=== PATIENT | female | born 1940 | race Caucasian/White ===

== ENCOUNTER 2018-01-30 15:13 | Inpatient (IN) | END 2018-02-12 13:54 | DRG 480 ==

== ENCOUNTER 2018-05-05 09:18 | Emergency (ER) | END 2018-05-05 18:48 | disposition home or self-care (01) ==

== ENCOUNTER 2018-09-28 14:34 | Emergency (ER) | END 2018-09-28 18:35 | disposition home or self-care (01) ==

== ENCOUNTER 2019-02-12 07:52 | Day surgery (SDC) | payer OTHER ==
[2019-02-12] VITALS (14 sets, daily range): BP systolic 128–151; BP diastolic 50–92; PULSE 64–95; RESP 16–22; Ht 157.5 cm; Wt 71.5 kg
[~2019-02-12] VITALS: Ht 157.5 cm; Wt 71.5 kg
[~2019-02-12 07:52] MED LIST: ASPI325T32 PO; ATOR10TA65 PO; BROMFENAC SODIUM 1.7 ML OPH DROP OPER SCH; CYCLOPENTOLATE 2% 2 ML OPH OPER SCH; FER325 PO; LACTATED RINGER'S 1,000 ML IV SCH; LANT3I SC; LIDOCAINE 3.5% GEL TUBE OPER ONE; LOSA25TA2 PO; MOXIFLOXACIN 0.5% 3 ML OPH OPER SCH; NOVO3I SC; PHENYLephrine 10% 5 ML OPH OPER SCH; SERT50TA6 PO; TROPICAMIDE 1% 15 ML OPH OPER SCH
[2019-02-12] MEDS ORDERED: LOSA100T15 PO (08:41)
[2019-02-12] MEDS ORDERED: SERT50TA6 PO (08:42)
[2019-02-12] MEDS ORDERED: ASPI81TA52 PO (08:42)
--- NOTE | 2019-02-12 08:42 | HPN ---
Date/Time of Note Date/Time of Note DATE: 02/12/19 TIME: 08:41 Interval H&P Admission Note Pt. seen H&P reviewed: No system changes JANNA VARELA D.O. Feb 12, 2019 08:42
[2019-02-12] MEDS ORDERED: TOLT2TAB5 PO (08:43)
[2019-02-12] MEDS ORDERED: AMLO-147 PO (08:43)
[2019-02-12] MEDS ORDERED: DONE10TA7 PO (08:44)
[2019-02-12] MEDS ORDERED: ATOR20TA38 PO (08:44)
[2019-02-12] MEDS ORDERED: PENT400T9 PO (08:44)
[2019-02-12] MEDS ORDERED: INSU100I7 SQ ×2 (08:45→08:46)
[2019-02-12] MEDS ORDERED: ASCO500C7 PO (08:46)
[2019-02-12] MEDS ORDERED: OMEG-158 PO (08:47)
[2019-02-12] MEDS ORDERED: CALC1TAB79 PO (08:47)
[2019-02-12] MEDS ORDERED: LIDOCAINE 3.5% GEL TUBE ONE (08:58)
[2019-02-12] MEDS: TETRACAINE 0.5% 4 ML OPH OPER SCH ×2 (09:25→12:31)
--- NOTE | 2019-02-12 09:48 | PREAC ---
Date/Time of Note Date/Time of Note DATE: 02/12/19 TIME: 09:44 Anesthesia Eval and Record Evaluation Time Pre-Procedure Interview DATE: 02/12/19 TIME: 09:44 Age 79 Sex female NPO: 8 hrs Preoperative diagnosis left eye cataract Planned procedure lef eye CEIOL implant, anterior vitrectomy Past Medical History Past Medical History: Includes Cardio: HTN, Dyslipidemia Endo: Diabetes Neuro: Other (dementia, short term memory loss) Musculoskeletal: Osteoarthritis (s/p right NEIL) Renal: CKD Surgery & Anesthesia Issues No known issue Meds Anticoagulation: Yes (last dose asa 02/06/19) Beta Lowell within 24 hr: No Reason Beta Lowell not given: Pt. not on B-Lowell Reported Medications [place]-3/Dha/Epa/Fish Oil (FISH OIL 1,000 MG SOFTGEL) 1 Each Capsule, 1 EACH PO DAILY, CAP 02/12/19 Calcium Carbonate/Vitamin D3 (Oysco 500+D Tablet) 1 Each Tablet, 1 EACH PO DAILY, TAB 02/12/19 Ascorbic Acid* (Vitamin C*) 500 Mg Capsule.sa, 500 MG PO DAILY, CAP 02/12/19 Insulin Lispro Protamin/Lispro (Humalog Mix 75-25 Kwikpen) 100 Unit/1 Ml Insuln.pen, 20 UNIT SQ QPM 02/12/19 Insulin Lispro Protamin/Lispro (Humalog Mix 75-25 Kwikpen) 100 Unit/1 Ml Insuln.pen, 30 UNIT SQ QAM 02/12/19 Donepezil* (Donepezil*) 10 Mg Tablet, 10 MG PO DAILY, #30 TAB 02/12/19 Pentoxifylline* (Pentoxifylline*) 400 Mg Tablet.sa, 400 MG PO DAILY, TAB 02/12/19 Atorvastatin Calcium* (Atorvastatin Calcium*) 20 Mg Tablet, 20 MG PO QHS, #30 TAB 02/12/19 Amlodipine Besylate* (Amlodipine Besylate*) 10 Mg Tablet, 10 MG PO DAILY, #30 TAB 02/12/19 Tolterodine Tartrate* (Tolterodine Tartrate*) 2 Mg Tablet, 2 MG PO BID, #60 TAB 02/12/19 Aspirin (Low Dose Aspirin) 81 Mg Tablet.dr, 81 MG PO DAILY, #30 TAB 02/12/19 Sertraline Hcl* (Sertraline Hcl*) 50 Mg Tablet, 50 MG PO DAILY, #30 TAB 02/12/19 Losartan Potassium* (Losartan Potassium*) 100 Mg Tablet, 100 MG PO DAILY, TAB 02/12/19 Discontinued Reported Medications Atorvastatin (Atorvastatin) 10 Mg Tablet, 20 MG PO QHS, #30 TAB 01/31/18 Sertraline Hcl* (Sertraline Hcl*) 50 Mg Tablet, 50 MG PO DAILY, #30 TAB 01/31/18 Discontinued Scripts Insulin Glargine* (Lantus*) 100 Unit/Ml Soln, 20 UNIT SC DAILY@20 for 30 Days Prov:RUI ROJAS 02/11/18 Insulin Aspart* (Novolog Insulin Pen*) 100 Unit/Ml Soln, 10 UNIT SC WITH MEALS for 30 Days Prov:RUI ROJAS 02/11/18 Aspirin (Aspir-Anna) 325 Mg Tablet.dr, 325 MG PO BID for 30 Days Prov:RUI ROJAS 02/11/18 Losartan Potassium* (Cozaar*) 25 Mg Tablet, 100 MG PO DAILY for 30 Days, TAB Prov:RUI ROJAS 02/11/18 Ferrous Sulfate* (Ferrous Sulfate*) 325 Mg Tabec, 325 MG PO BID for 30 Days, TAB Prov:RUI ROJAS 02/11/18 Current Medications Lactated Ringer's 1,000 ml @ 25 mls/hr Q24H IV ; Start 02/11/19 at 16:32 Cyclopentolate HCl (Cyclogyl 2% Oph) 1 drop Q5MIN X 3 OPER Last administered on 02/12/19at 09:25; Admin Dose 1 DROP; Start 02/11/19 at 17:00 Bromfenac Sodium (Bromday) 1 drop Q5 MIN X3 OPER Last administered on 02/12/19at 09:25; Admin Dose 1 DROP; Start 02/11/19 at 17:00 Phenylephrine HCl (Ak-Dilate 10%) 1 drop Q5MIN X 3 OPER Last administered on 02/12/19 09:26; Admin Dose 1 DROP; Start 02/11/19 at 17:00 Tropicamide (Mydriacyl 1%) 1 drop Q5MIN X 3 OPER Last administered on 02/12/19at 09:26; Admin Dose 1 DROP; Start 02/11/19 at 17:00 Moxifloxacin HCl (Vigamox) 1 drop Q5MIN X 3 OPER Last administered on 02/12/19at 09:26; Admin Dose 1 DROP; Start 02/11/19 at 17:00 Tetracaine HCl (Tetracaine 0.5% Steri-Unit Jaquelin) 1 drop Q5 MIN X3 OPER Last administered on 02/12/19at 09:25; Admin Dose 1 DROP; Start 02/11/19 at 17:00 Meds reviewed: Yes Allergies Coded Allergies: Penicillins (Verified Allergy, Intermediate, 02/12/19) Sulfa (Sulfonamide Antibiotics) (Verified Allergy, Intermediate, 02/12/19) Allergies Reviewed: Yes Labs/Studies Labs Reviewed: Reviewed by anesthesiologist test: N/A Studies: ECG, CXR Pre-procedure Exam Airway: Adequate mouth opening, Adequate thyromental dist Mallampati: Mallampati II Teeth: Normal (several missing teeth) Lung: Normal Heart: Normal ASA Physical Status ASA physical status: 3 Emergency: None Planned Anesthetic General/MAC: LMA (pt has dementia and anxiety, pt and family concerned that sudden movements due to disorientation will happen intraop so prefers to get GA) Planned Pain Management Parenteral pain med, Local by surgeon Pre-operative Attestations Prior to commencing anesthesia and surgery, the patient was re-evaluated, there was verification of: *The patient's identity *The results of appropriate recent lab work and preoperative vital signs *The above evaluation not changing prior to induction *Anesthetic plan, risk benefits, alternative and complications discussed with patient/family; questions answered; patient/family understands, accepts and wishes to proceed. NII BARBOSA Feb 12, 2019 09:48
[2019-02-12] MEDS ORDERED: hydrALAzine 20 MG INJ IV PRN (10:00)
[2019-02-12] MEDS ORDERED: OXYCODONE/ACETAMINOPHEN (5/325) TAB PO PRN ×2 (10:00)
[2019-02-12] MEDS ORDERED: FENTAnyl 50 MCG/ML VIAL IV PRN ×3 (10:00)
[2019-02-12] MEDS ORDERED: LABETALOL HCL 20MG INJ IV PRN (10:00)
[2019-02-12] MEDS ORDERED: ONDANSETRON 4 MG INJ IV PRN (10:00)
[2019-02-12] MEDS ORDERED: PROPOFOL 40 ML ONE (10:26)
[2019-02-12] MEDS ORDERED: FENTAnyl 50 MCG/ML VIAL ONE (10:26)
[2019-02-12] MEDS ORDERED: LIDOCAINE 2% (SDV) 5 ML INJ ONE (10:26)
[2019-02-12] MEDS ORDERED: MOXIFLOXACIN 0.5% 3 ML OPH ONE (10:30)
[2019-02-12] MEDS ORDERED: TETRACAINE 0.5% 4 ML OPH ONE (10:30)
[2019-02-12] MEDS ORDERED: LIDOCAINE 1%/EPI (1:100,000) (MDV) 20 ML ONE (10:30)
[2019-02-12] MEDS ORDERED: TRYPAN BLUE 0.5 ML SYG IO ONE (10:35)
[2019-02-12] MEDS ORDERED: CLINDAMYCIN 600 MG/D5W (PMX) 50 ML IVPB ONE (11:29)
[2019-02-12] MEDS ORDERED: ONDANSETRON 4 MG INJ ONE (11:33)
--- NOTE | 2019-02-12 12:30 | SIPON ---
Date/Time of Note Date/Time of Note DATE: 02/12/19 TIME: 12:24 Operative Report Preoperative Diagnosis Hypermature senile cataract, Lt eye, Narrow angle glaucoma, Lt eye, Vitreous degeneration , Lt.eye. Postoperative Diagnosis Hypermature senile cataract, LT EYE, Vitreous degeneration, Lt eye, Narrow angle glaucoma, lt.eye, Floppy iris syndrome, Lt eye. Operation/Procedure Performed Extracapsular cataract ectraction, pars plana vitrectomy and IOL implantation, Lt. eye. Surgeon see signature line video library assistant none Anesthesia: general Estimated blood loss: minimal Transfusion Required none Specimen none Grafts/Implants none Complications none JANNA VARELA D.O. Feb 12, 2019 12:30
--- NOTE | 2019-02-12 13:26 | PAC ---
Date/Time of Note Date/Time of Note DATE: 02/12/19 TIME: 13:26 Post-Anesthesia Notes Post-Anesthesia Note Last documented vital signs Vital Signs Date Temp Pulse Resp B/P (MAP) Pulse Ox O2 O2 Flow FiO2 Time Delivery Rate 02/12/19 88 19 137/59 95 Room Air 12:58 (85) 02/12/19 98.2 12:27 Activity: WNL Respiratory function: WNL Cardiovascular function: WNL Mental status: Baseline Pain reasonably controlled: Yes Hydration appropriate: Yes Nausea/Vomiting absent: Yes NII BARBOSA Feb 12, 2019 13:26
--- NOTE | 2019-02-13 21:40 | OPR ---
DATE OF OPERATION: SURGEON: Janna Uribe DO ANESTHESIOLOGIST: Roger Perez CRNA PREOPERATIVE DIAGNOSES: 1. Hypermature senile cataract, left eye. 2. Vitreous degeneration, left eye. 3. Anatomically narrow-angle glaucoma, left eye. POSTOPERATIVE DIAGNOSES: 1. Hypermature senile cataract, left eye. 2. Vitreous degeneration, left eye. 3. Anatomically narrow-angle glaucoma, left eye. 4. Floppy iris syndrome, left eye. PROCEDURE PLANNED: Extracapsular cataract extraction with intraocular lens implantation and pars bennett na vitrectomy, left eye. PROCEDURE PERFORMED: Extracapsular cataract extraction with intraocular lens implantation and pars p klarissa vitrectomy, left eye. ANESTHESIA: General. INFORMED CONSENT: The procedure, risks, benefits, alternatives and complications including bleeding, infection, loss of vision, loss of the eye, loss of nucleus and retinal detachment, damage of the ir is and possible secondary surgery to take care of complication have been discussed with the patient a nd her son, Ramy. It was discussed in [place]. The patient and her son, Ramy, understood and co nsented to the above-mentioned procedure. Even they are both aware of a high risk of complication du e to very advanced immature cataracts and very poor vision, only light perception. No guarantee of i mprovement of vision was given and high risk of possibility of complication and secondary surgery. T he patient signed the consent form and it is available in the medical chart. The patient was taken t o the operating room in stable condition and the full face was prepped and draped in a sterile fashio n for the cataract surgery. DESCRIPTION OF PROCEDURE: The patient was placed on the operating room table in supine position. Th en, Alcaine drop was instilled in the conjunctival sac. It was followed by injection of lidocaine 2% with epinephrine subconjunctivally in anterior chamber as well. Then, air bubble was injected in th e anterior chamber. It was followed by injection of Trypan blue which was removed with irrigation as piration with balanced salt solution. In the temporal area about 3 mm below of a limbal incision, co njunctival incision was done and it was cauterized with Bovie cautery. Then, ____ shape incision 7.5 mm was done with the Edgar #15 blade and then very large capsulorrhexis was done and hydrodissectio n as well. The nucleus was rotated out of the posterior bag into anterior. Then, [place] knife was u sed to enter the anterior chamber. The loop and some pressured with muscle hook from opposite side w as used to extract the nucleus from the anterior chamber. It was followed by irrigation aspiration. Additional Viscoat agent was injected and a posterior capsular lens [id number], 20.0 diopters, was inser zac into the posterior bag. Then, the patient was suddenly started moving and additional high pressu re was noticed in the eye and the iris was prolapsed and it was very floppy even with our attempt to insert it back into the anterior chamber with Viscoat agent and a spatula was not successful. Part o f the iris was removed and pars plana vitrectomy was done. The wound was, prior to it, closed with 8 -0 Vicryl suture. Viscoat was removed via irrigation aspiration with balanced salt solution. The co njunctiva was closed with 8-0 Vicryl. TobraDex ointment was instilled in the conjunctival sac. The patient was transferred to recovery room in stable condition. Dictated By: JANNA ALTMAN/SAVANA Conf#: [id number] DID#: [id number]
== END 2019-02-12 14:55 | disposition home or self-care (01) ==
LOC: SDS 07:52
PROVIDERS: ATTEND Ophthalmology
DX: H25.22 Age-related cataract, morgagnian type, left eye (principal); H40.20X0 Unspecified primary angle-closure glaucoma, stage unspecified; E11.9 Type 2 diabetes mellitus without complications; I10 Essential (primary) hypertension; E78.5 Hyperlipidemia, unspecified
CPT/HCPCS: 66984; 82962; J2405; J3010; V2632; Z7512; Z7610

== ENCOUNTER 2019-04-14 14:44 | Emergency (ER) | payer OTHER ==
[~2019-04-14] VITALS: Wt 70.0 kg
[~2019-04-14 14:44] MED LIST changes: +AMLO-147 PO; +ASCO500C7 PO; -ASPI325T32 PO; +ASPI81TA52 PO; -ATOR10TA65 PO; +ATOR20TA38 PO; -BROMFENAC SODIUM 1.7 ML OPH DROP OPER SCH; +CALC1TAB79 PO; -CYCLOPENTOLATE 2% 2 ML OPH OPER SCH; +DONE10TA7 PO; -FER325 PO; +INSU100I7 SQ; -LACTATED RINGER'S 1,000 ML IV SCH; -LANT3I SC; -LIDOCAINE 3.5% GEL TUBE OPER ONE; +LOSA100T15 PO; -LOSA25TA2 PO; -MOXIFLOXACIN 0.5% 3 ML OPH OPER SCH; -NOVO3I SC; +OMEG-158 PO; +PENT400T9 PO; -PHENYLephrine 10% 5 ML OPH OPER SCH; +TOLT2TAB5 PO; -TROPICAMIDE 1% 15 ML OPH OPER SCH
--- NOTE | 2019-04-14 15:49 | ERD ---
ER Documentation Chief Complaint Chief Complaint MD ref: 'EKG shows infarct'. L sided CP intermittent 0/10. hx dementia HPI 79-year-old female comes to the emergency department with her son for evaluation of an abnormal EKG. Patient was in her normal state of health which is a say that she was going for a preop appointment to her doctor for preop clearance for retinal surgery. She was asymptomatic with no chest pain or shortness of breath. Her doctor did a EKG which showed a left bundle branch block and referred the patient to the emergency department. Upon arrival, patient continues to have no complaints including no chest pain, shortness of breath. ROS All systems reviewed and are negative except as per history of present illness. Medications Home Meds Reported Medications [place]-3/Dha/Epa/Fish Oil (FISH OIL 1,000 MG SOFTGEL) 1 Each Capsule, 1 EACH PO DAILY, CAP 02/12/19 Calcium Carbonate/Vitamin D3 (Oysco 500+D Tablet) 1 Each Tablet, 1 EACH PO DAILY, TAB 02/12/19 Ascorbic Acid* (Vitamin C*) 500 Mg Capsule.sa, 500 MG PO DAILY, CAP 02/12/19 Insulin Lispro Protamin/Lispro (Humalog Mix 75-25 Kwikpen) 100 Unit/1 Ml Insuln.pen, 20 UNIT SQ QPM 02/12/19 Insulin Lispro Protamin/Lispro (Humalog Mix 75-25 Kwikpen) 100 Unit/1 Ml Insuln.pen, 30 UNIT SQ QAM 02/12/19 Donepezil* (Donepezil*) 10 Mg Tablet, 10 MG PO DAILY, #30 TAB 02/12/19 Pentoxifylline* (Pentoxifylline*) 400 Mg Tablet.sa, 400 MG PO DAILY, TAB 02/12/19 Atorvastatin Calcium* (Atorvastatin Calcium*) 20 Mg Tablet, 20 MG PO QHS, #30 TAB 02/12/19 Amlodipine Besylate* (Amlodipine Besylate*) 10 Mg Tablet, 10 MG PO DAILY, #30 TAB 02/12/19 Tolterodine Tartrate* (Tolterodine Tartrate*) 2 Mg Tablet, 2 MG PO BID, #60 TAB 02/12/19 Aspirin (Low Dose Aspirin) 81 Mg Tablet.dr, 81 MG PO DAILY, #30 TAB 02/12/19 Sertraline Hcl* (Sertraline Hcl*) 50 Mg Tablet, 50 MG PO DAILY, #30 TAB 02/12/19 Losartan Potassium* (Losartan Potassium*) 100 Mg Tablet, 100 MG PO DAILY, TAB 02/12/19 Allergies Allergies: Coded Allergies: Penicillins (Verified Allergy, Intermediate, 02/12/19) Sulfa (Sulfonamide Antibiotics) (Verified Allergy, Intermediate, 02/12/19) PMhx/Soc History of Surgery: Yes (R HIP SURGERY) Anesthesia Reaction: No Hx Neurological Disorder: No Hx Respiratory Disorders: No Hx Cardiac Disorders: Yes (HTN) Hx Psychiatric Problems: Yes (DEPRESSION, DEMENTIA) Hx Miscellaneous Medical Probl: No Hx Alcohol Use: No Hx Substance Use: No Hx Tobacco Use: No Physical Exam Vitals Vital Signs Date Temp Pulse Resp B/P (MAP) Pulse Ox O2 O2 Flow FiO2 Time Delivery Rate 04/14/19 97.9 68 20 162/72 96 14:50 (102) Physical Exam GENERAL: The patient is well developed and appropriate for usual state of health in no apparent distress HEENT: Pupils equal, round, and reactive to light. EOMI. There is no scleral icterus. NECK: C-spine is soft and supple, there is no meningismus. There is no cervical lymphadenopathy. LUNGS: Clear to auscultation bilaterally. There are no rales, wheezes or rhonchi. HEART: Regular rate and rhythm. There is a 2-3+ systolic ejection murmur at the left upper sternal border. ABDOMEN: Soft, non-tender, non-distended. There are bowel sounds in all four quadrants. No rebound or guarding. EXTREMITIES: There is no peripheral cyanosis or edema. No focal swelling or erythema. NEURO: The patient moves all four extremities with 5/5 strength. Cranial nerves II - XII are intact. Normal gait. Alert and oriented SKIN: There is no apparent rash or petechiae. HEME/LYMPHATIC: There is no evidence of excessive bruising or lymphedema. PSYCHIATRIC: The patient does not appear anxious or depressed. Procedures/MDM Patient was taken to a room, seen and examined Twelve-lead EKG interpreted by myself both from the patient's doctor's office as well as here in the emergency department: Normal sinus rhythm Left bundle branch block No ST elevation or depression Impression: Left bundle branch block without obvious ischemic changes Medical decision makin-year-old female presents the emergency department with what appears to be an asymptomatic left bundle branch block. At this time, given the patient's significant cardiac murmur, this is likely indicative of her chronic cardiac disease. She has no chest pain or shortness of breath or any other obvious ischemic symptoms. After discussing with her family, the decision was made for outpatient evaluation as she feels comfortable and the family is comfortable this is unlikely a cardiac emergency as the patient never had cardiac symptoms. Departure Diagnosis: Primary Impression: Bundle branch block, left Patient Instructions: Echocardiography (Echo) Additional Instructions: Tests today show a Left Bundle Branch Block, which can be from a number of issus. You will need an echocardiogram to recheck your heart. At any time, please return to the ER for further tests if any symptoms arise. SERENA NEWMAN April 14, 2019 15:49
[2019-04-14 16:00] VITALS: BP 133/57; PULSE 62; RESP 18
--- NOTE | 2019-04-16 14:43 | RADRPT ---
Vent Rate: 58 bpm RR Interval: 0 msec IA Interval: 182 msec QRS Duration: 144 msec QT Interval: 466 msec QTC Interval: 457 msec P-R-T [place]: 35 - -16 - 104 degrees Sinus bradycardia Left bundle branch block Abnormal ECG Electronically Signed By: [facility]
== END 2019-04-14 16:02 | disposition home or self-care (01) ==
LOC: E/R 14:44
DX: I44.7 Left bundle-branch block, unspecified (principal); I10 Essential (primary) hypertension; R40.2142 Coma scale, eyes open, spontaneous, at arrival to emergency department; R40.2362 Coma scale, best motor response, obeys commands, at arrival to emergency department; R40.2252 Coma scale, best verbal response, oriented, at arrival to emergency department; Z79.4 Long term (current) use of insulin; Z79.82 Long term (current) use of aspirin
CPT/HCPCS: 93005; Z7502

== ENCOUNTER 2019-07-02 06:01 | Day surgery (SDC) | payer OTHER ==
[2019-07-01 15:03] VITALS: BMI 26.6
[2019-07-02] VITALS (11 sets, daily range): BP systolic 129–155; BP diastolic 59–72; PULSE 50–87; RESP 10–18; Ht 157.5 cm; Wt 66.3 kg
[~2019-07-02] VITALS: Ht 157.5 cm; Wt 66.3 kg
[~2019-07-02 06:01] MED LIST changes: +ACET-141 PO; +BROMFENAC SODIUM 1.7 ML OPH DROP OPER SCH; +INSU100C3 SQ; +INSU100I33 SC; +LIDOCAINE 3.5% GEL TUBE OPER ONE; +MEMA10TA PO; +MOXIFLOXACIN 0.5% 3 ML OPH OPER SCH; +OXYB5TAB PO; +TETRACAINE 0.5% 4 ML OPH OPER SCH
[2019-07-02] MEDS ORDERED: LIDOCAINE 1%/EPI 30 ML INJ ONE (07:56)
[2019-07-02] MEDS ORDERED: TETRACAINE 0.5% 4 ML OPH ONE (07:57)
[2019-07-02] MEDS ORDERED: TOBRAMYCIN/DEXAMETH 3.5 GM OPH OINT ONE (07:57)
[2019-07-02] MEDS ORDERED: BALANCED SALT SOLN 15 ML OPH IRRIG ONE (07:57)
--- NOTE | 2019-07-02 07:59 | HPN ---
Date/Time of Note Date/Time of Note DATE: 07/02/19 TIME: 07:58 Interval H&P Admission Note Pt. seen H&P reviewed: No system changes JANNA VARELA D.O. Jul 02, 2019 07:59
--- NOTE | 2019-07-02 08:06 | PREAC ---
Date/Time of Note Date/Time of Note DATE: 07/02/19 TIME: 08:00 Anesthesia Eval and Record Evaluation Time Pre-Procedure Interview DATE: 07/02/19 TIME: 08:00 Age 79 Sex female NPO: 8 hrs Preoperative diagnosis need repair of iris and ciliary body left body Planned procedure repair of irisd and ciliary body left eye Past Medical History Past Medical History: Includes (hyperlipidemia, ) Cardio: HTN Endo: Diabetes, Hypothyroid Renal: CKD Surgery & Anesthesia Issues No known issue Meds Anticoagulation: No Beta Lowell within 24 hr: No Reason Beta Lowell not given: Pt. not on B-Lowell Reported Medications Acetaminophen* (Acetaminophen*) 500 MG Extra Strength Tablet, 500 MG PO Q4H PRN for PAIN AND OR ELEVATED TEMP, TAB 07/02/19 Insulin Glargine,Hum.rec.anlog (Basaglar Kwikpen U-100) 100 Unit/1 Ml Insuln.pen, 20 UNIT SC BID, EA 07/02/19 Insulin Aspart (Novolog) 100 Unit/1 Ml Cartridge, 0-12 UNIT SQ AC A for PER SLIDING SCALE 07/02/19 Memantine* (Namenda*) 10 Mg Tablet, 10 MG PO DAILY, #30 TAB 07/02/19 Oxybutynin Chloride (Oxybutynin Chloride ER) 5 Mg Tab.er.24, 5 MG PO, TAB 07/02/19 Donepezil* (Donepezil*) 10 Mg Tablet, 10 MG PO DAILY, #30 TAB 02/12/19 Pentoxifylline* (Pentoxifylline*) 400 Mg Tablet.sa, 400 MG PO DAILY, TAB 02/12/19 Atorvastatin Calcium* (Atorvastatin Calcium*) 20 Mg Tablet, 20 MG PO QHS, #30 TAB 02/12/19 Amlodipine Besylate* (Amlodipine Besylate*) 10 Mg Tablet, 10 MG PO DAILY, #30 TAB 02/12/19 Tolterodine Tartrate* (Tolterodine Tartrate*) 2 Mg Tablet, 2 MG PO BID, #60 TAB 02/12/19 Aspirin (Low Dose Aspirin) 81 Mg Tablet.dr, 81 MG PO DAILY, #30 TAB 02/12/19 Sertraline Hcl* (Sertraline Hcl*) 50 Mg Tablet, 50 MG PO DAILY, #30 TAB 02/12/19 Losartan Potassium* (Losartan Potassium*) 100 Mg Tablet, 100 MG PO DAILY, TAB 02/12/19 Discontinued Reported Medications [place]-3/Dha/Epa/Fish Oil (FISH OIL 1,000 MG SOFTGEL) 1 Each Capsule, 1 EACH PO DAILY, CAP 02/12/19 Calcium Carbonate/Vitamin D3 (Oysco 500+D Tablet) 1 Each Tablet, 1 EACH PO DAILY, TAB 02/12/19 Ascorbic Acid* (Vitamin C*) 500 Mg Capsule.sa, 500 MG PO DAILY, CAP 02/12/19 Insulin Lispro Protamin/Lispro (Humalog Mix 75-25 Kwikpen) 100 Unit/1 Ml Insuln.pen, 20 UNIT SQ QPM 02/12/19 Insulin Lispro Protamin/Lispro (Humalog Mix 75-25 Kwikpen) 100 Unit/1 Ml Insuln.pen, 30 UNIT SQ QAM 02/12/19 Current Medications Bromfenac Sodium (Bromday) 1 drop Q5 MIN X3 OPER Last administered on 07/02/19at 07:14; Admin Dose 1 DROP; Start 07/02/19 at 06:00 Moxifloxacin HCl (Vigamox) 1 drop Q5MIN X 3 OPER Last administered on 07/02/19at 07:14; Admin Dose 1 DROP; Start 07/02/19 at 06:00 Tetracaine HCl (Tetracaine 0.5% Steri-Unit Jaquelin) 1 drop Q5 MIN X3 OPER Last administered on 07/02/19at 07:14; Admin Dose 1 DROP; Start 07/02/19 at 06:00 Meds reviewed: Yes Allergies Coded Allergies: Penicillins (Verified Allergy, Intermediate, 07/02/19) Sulfa (Sulfonamide Antibiotics) (Verified Allergy, Intermediate, 07/02/19) Allergies Reviewed: Yes Labs/Studies Labs Reviewed: Reviewed by anesthesiologist test: N/A Studies: ECG Pre-procedure Exam Last vitals Vital Signs Date Temp Pulse Resp B/P (MAP) Pulse Ox O2 O2 Flow FiO2 Time Delivery Rate 07/02/19 97.7 50 14 138/65 98 Room Air 07:32 (89) Airway: Adequate mouth opening, Adequate thyromental dist Mallampati: Mallampati II Teeth: Normal Lung: Normal Heart: Normal ASA Physical Status ASA physical status: 3 Emergency: None Planned Anesthetic General/MAC: MAC Planned Pain Management Local by surgeon Pre-operative Attestations Prior to commencing anesthesia and surgery, the patient was re-evaluated, there was verification of: *The patient's identity *The results of appropriate recent lab work and preoperative vital signs *The above evaluation not changing prior to induction *Anesthetic plan, risk benefits, alternative and complications discussed with patient/family; questions answered; patient/family understands, accepts and wishes to proceed. MARIA ELENA NAIK CRNA Jul 02, 2019 08:06
[2019-07-02] MEDS ORDERED: CARBACHOL 0.01% 1.5 ML OPH INJ ONE (08:12)
[2019-07-02] MEDS ORDERED: LIDOCAINE 1% (MPF) 30 ML INJ ONE (08:12)
[2019-07-02] MEDS ORDERED: EPINEPHrine 1 MG INJ ONE (08:13)
--- NOTE | 2019-07-02 08:18 | HPN ---
Date/Time of Note Date/Time of Note DATE: 07/02/19 TIME: 08:18 Interval H&P Admission Note Pt. seen H&P reviewed: No system changes JANNA VARELA D.O. Jul 02, 2019 08:18
[2019-07-02] MEDS ORDERED: PROPOFOL 200 MG INJ ONE (08:30)
[2019-07-02] MEDS ORDERED: FENTAnyl 50 MCG/ML VIAL ONE (08:37)
[2019-07-02] MEDS ORDERED: GLYCOPYRROLATE 0.4 MG INJ ONE (08:42)
[2019-07-02] MEDS ORDERED: ONDANSETRON 4 MG INJ ONE (08:42)
[2019-07-02] MEDS ORDERED: FAMOTIDINE 20 MG INJ ONE (08:42)
[2019-07-02] MEDS ORDERED: LIDOCAINE 2% (SDV) 5 ML INJ ONE (08:42)
[2019-07-02] MEDS ORDERED: CEFAZOLIN 1 GM INJ ONE (08:52)
[2019-07-02] MEDS ORDERED: ONDANSETRON 4 MG INJ IV PRN (09:30)
[2019-07-02] MEDS ORDERED: MEPERIDINE 25 MG INJ IV PRN (09:30)
[2019-07-02] MEDS ORDERED: morphine 2 MG INJ IV PRN ×2 (09:30)
[2019-07-02] MEDS ORDERED: FENTAnyl 50 MCG/ML VIAL IV PRN ×2 (09:30)
[2019-07-02] MEDS ORDERED: OXYCODONE/ACETAMINOPHEN (5/325) TAB PO PRN (09:30)
--- NOTE | 2019-07-02 09:42 | SIPON ---
Date/Time of Note Date/Time of Note DATE: 07/02/19 TIME: 09:40 Operative Report Preoperative Diagnosis Iridodialysis, Left eye Postoperative Diagnosis Iridodialysis,Lt eye Operation/Procedure Performed Iris repair, Lt eye Surgeon see signature line marketing administrative assistant none Anesthesia: general Estimated blood loss: none Transfusion Required none Specimen none Grafts/Implants none Complications none JANNA VARELA D.O. Jul 02, 2019 09:42
--- NOTE | 2019-07-02 09:51 | PAC ---
Date/Time of Note Date/Time of Note DATE: 07/02/19 TIME: 09:50 Post-Anesthesia Notes Post-Anesthesia Note Last documented vital signs Vital Signs Date Temp Pulse Resp B/P (MAP) Pulse Ox O2 O2 Flow FiO2 Time Delivery Rate 07/02/19 97.7 50 14 138/65 98 Room Air 07:32 (89) Activity: WNL Respiratory function: WNL Cardiovascular function: WNL Mental status: Baseline Pain reasonably controlled: Yes Hydration appropriate: Yes Nausea/Vomiting absent: Yes Comments BP 129/72 Spo2 100% HR 87 RR 12 T 97.8F Accu check 189 MARIA ELENA NAIK CRNA Jul 02, 2019 09:51
--- NOTE | 2019-07-02 15:54 | RADRPT ---
Vent Rate: 47 bpm RR Interval: 1272 msec ND Interval: 241 msec QRS Duration: 143 msec QT Interval: 488 msec QTC Interval: 433 msec P-R-T [place]: 62 - -38 - 113 degrees Sinus bradycardia...rate< 50 Prolonged ND interval...ND >230, V-rate 30- 49 Left bundle branch block...QRSd>120, broad/notched R ST elevation secondary to IVCD...Multiple VCG criteria Electronically Signed By: Mykel Lehman
--- NOTE | 2019-07-05 23:21 | OPR ---
DATE OF OPERATION: 07/02/2019 PREOPERATIVE DIAGNOSIS: Iridolodialysis, right eye. POSTOPERATIVE DIAGNOSIS: Iridodialysis, right eye. PROCEDURE PLANNED: Iris repair, right eye. OPERATION PERFORMED: Iris repair, right eye. ANESTHESIA: General. Nurse senior environmental engineer: Nora CONSENT: The patient and her son were given all possible options of treatment of her condition. They understood the possibility of bleeding, infection, more damage to the iris, unsuccessful surgery, possibility of loss of vision or loss of the eye as an organ. The patient and her son reviewed all possible complication and patient signed consent under the son's supervision. Consent can be found in her chart. DESCRIPTION OF PROCEDURE: The patient brought to the operating room in stable condition and placed on the operating table in supine position and her left eye prepped for the surgery in routine sterile technique. Retractor placed into the left eye. Then paracentesis was done in the area opposite of damaged iris. Viscoat agent was injected into anterior chamber. It is approximately on 6 o'clock as well as on 3 o'clock. Viscoat agent was injected into anterior chamber. Then double needle suture was used to reattach the iris to ciliary body in a few places. The suture was tied and conjunctiva was placed over the knots to cover the knot and provide stability. Then irrigation aspiration was performed. Viscoat agent was removed and TobraDex ointment was instilled into the conjunctival sac and patch was placed over closed eyelid. The patient transferred to recovery room in stable condition. Dictated By: JANNA ALTMAN/SAVANA Conf#: [id number] DID#: [id number]
== END 2019-07-02 11:30 | disposition home or self-care (01) ==
LOC: SDS 06:01
PROVIDERS: ATTEND Ophthalmology
DX: H21.531 Iridodialysis, right eye (principal); I12.9 Hypertensive chronic kidney disease with stage 1 through stage 4 chronic kidney disease, or unspecified chronic kidney disease; N18.9 Chronic kidney disease, unspecified; E03.9 Hypothyroidism, unspecified; E11.9 Type 2 diabetes mellitus without complications; Z79.82 Long term (current) use of aspirin; Z79.4 Long term (current) use of insulin
CPT/HCPCS: 66680; 82962; 93005; J0171; J0690; J2270; J2405; J3010; Z7512; Z7610